=== PATIENT | male | born 1935 | race Caucasian/White ===

== ENCOUNTER 2019-12-17 08:36 | Outpatient (CLI) | payer MEDICARE, OTHER, SELFPAY ==
--- NOTE | 2019-12-17 08:46 | XR_ITS ---
WS: [id number] THORACIC SPINE TECHNIQUE: 3 views of the thoracic spine CLINICAL INFORMATION: IDIOPATHIC SCOLIOSIS COMPARISON: None. FINDINGS: Osteopenia. Mild thoracic curve convex right. Calcification. Calcified hilar nodes. Mild thoracic kyp hosis with chronic anterior wedging in the mid thoracic spine. No acute appearing compression fractur es. Mild disc space narrowing throughout the thoracic spine. Aortic calcification. XR/XR thoracic spine 3V* [id number] IMPRESSION: 1. Mild thoracic curve convex right with mild thoracic kyphosis. 2. Chronic anterior wedging mid thoracic spine. 3. No acute appearing compression fractures.
--- NOTE | 2019-12-17 08:46 | XR_ITS ---
WS: [id number] LUMBAR SPINE TECHNIQUE: 3 views of the lumbar spine CLINICAL INFORMATION: IDIOPATHIC SCOLIOSIS COMPARISON: None. FINDINGS: Mild lumbar curve convex left. Osteopenia. Moderate spondylitic changes lumbar spine. Pelvic phleboli ths. Slight retrolisthesis L1 on L2 and L2 on L3. Disc space narrowing throughout the lumbar spine wo rse at L1-2 with endplate degenerative changes. Moderate facet arthropathy lower lumbar spine. Aortic calcification. XR/XR lumbar spine 2-3V* [id number] IMPRESSION: 1. Mild lumbar curve convex left. Osteopenia. 2. No acute appearing compression fractures. 3. Slight retrolisthesis L1 on L2 and L2-L3 with disc space narrowing througho ut the lumbar spine. 4. Disc space narrowing worse at L1-2.
== END 2019-12-17 08:37 | disposition home or self-care (01) ==
LOC: RADWPI 08:41
PROVIDERS: PCP Family Medicine Adult Medicine; Visit Provider Family Medicine Adult Medicine
DX: M40.204 Unspecified kyphosis, thoracic region (principal); M48.54XA Collapsed vertebra, not elsewhere classified, thoracic region, initial encounter for fracture; X58.XXXA Exposure to other specified factors, initial encounter; M85.88 Other specified disorders of bone density and structure, other site
CPT/HCPCS: 72072; 72100

== ENCOUNTER → 2019-12-22 08:50 | Outpatient (BNVA) | payer MEDICARE, OTHER, SELFPAY | PROVIDERS: Visit Provider Family Medicine Adult Medicine | DX: M15.9 Polyosteoarthritis, unspecified (principal); N40.0 Benign prostatic hyperplasia without lower urinary tract symptoms; M41.20 Other idiopathic scoliosis, site unspecified; R00.0 Tachycardia, unspecified; R03.0 Elevated blood-pressure reading, without diagnosis of hypertension; Z91.81 History of falling; Z68.25 Body mass index [BMI] 25.0-25.9, adult; F17.211 Nicotine dependence, cigarettes, in remission | CPT/HCPCS: 84153; 85025 ==

== ENCOUNTER → 2020-03-15 11:03 | Outpatient (BNVA) | payer MEDICARE, OTHER, SELFPAY | PROVIDERS: PCP Family Medicine Adult Medicine; Visit Provider Orthopaedic Surgery | DX: M54.9 Dorsalgia, unspecified (principal) | CPT/HCPCS: 72114 ==

== ENCOUNTER 2020-03-23 13:34 | Outpatient (CLI) | payer MEDICARE, OTHER, SELFPAY ==
--- NOTE | 2020-03-23 13:45 | MR_ITS ---
WS: [id number] MRI LUMBAR SPINE NONCONTRAST HISTORY: M48.062 - Spinal stenosis, lumbar region with neurogenic claudication COMPARISON: Lumbar spine radiograph 03/15/2020 TECHNIQUE: Sagittal and axial multisequence imaging is submitted. Thoracolumbar scoliosis with degenerative changes in the cervical and thoracic spine. 3 mm retrolisthesis of L1 and L2. L4 anterior wedging by 20% with residual increased T2 signal from m arrow edema through the vertebral body. No involvement of the posterior elements. No retropulsion of the posterior vertebral body. There is moderate to severe disc space narrowing throughout the entire lumbar spine. Conus terminates normally at L1-2 disc level. L1-L2: Diffuse osteophytic ridging and annular disc bulging. Mild bilateral foraminal stenosis. L2-L3: Diffuse osteophytic ridging and annular disc bulging with facet and ligamentum flavum arthriti s. Mild encroachment into the thecal sac. Mild bilateral foraminal stenosis. L3-L4: Diffuse annular disc bulging. Disc is asymmetric extending into the RIGHT foramen. Moderate li gamentum flavum hypertrophy. Moderate RIGHT foramen and subarticular recess stenosis. Mild on the LEF T. The disc protrusion in the RIGHT foramen does abut the undersurface of the L3 nerve root. L4-L5: Diffuse annular disc bulging and osteophytic ridging. Mild facet and ligamentum flavum arthrit is. No central stenosis. Mild bilateral foraminal stenosis. L5-S1: Bilateral facet joint arthritis. Mild bilateral foraminal narrowing with no central stenosis. Bilateral renal cysts. Largest renal cyst on the LEFT at 7.3 cm. Atherosclerosis of aorta. MR/MR lumbar spine wo con* [id number] IMPRESSION: 1. Subacute L4 compression fracture by 20%. No retropulsion or involvement of the posterior elements. 2. Moderate RIGHT foraminal and subarticular recess stenosis at L3-4 secondary to asymmetric disc bulging, likely disc protrusion and facet disease. 3. 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 Most sign ificant narrowing is on the RIGHT at L3-4.
== END 2020-03-23 13:35 | disposition home or self-care (01) ==
LOC: RADSHAW 13:38
PROVIDERS: PCP Family Medicine Adult Medicine; Visit Provider Orthopaedic Surgery
DX: M48.062 Spinal stenosis, lumbar region with neurogenic claudication (principal); S32.040A Wedge compression fracture of fourth lumbar vertebra, initial encounter for closed fracture; M51.36 Other intervertebral disc degeneration, lumbar region; X58.XXXA Exposure to other specified factors, initial encounter
CPT/HCPCS: 72148

== ENCOUNTER → 2020-04-04 09:28 | Outpatient (BNVA) | payer MEDICARE, OTHER, SELFPAY | PROVIDERS: PCP Family Medicine Adult Medicine; Referring Provider Orthopaedic Surgery; Visit Provider Anesthesiology Pain Medicine | DX: M51.16 Intervertebral disc disorders with radiculopathy, lumbar region (principal); M47.816 Spondylosis without myelopathy or radiculopathy, lumbar region; Z79.891 Long term (current) use of opiate analgesic | CPT/HCPCS: 99205 ==

== ENCOUNTER → 2020-04-11 13:20 | Outpatient (BNVA) | payer MEDICARE, OTHER, SELFPAY | PROVIDERS: PCP Family Medicine Adult Medicine; Visit Provider Anesthesiology Pain Medicine | DX: M54.16 Radiculopathy, lumbar region (principal); M48.062 Spinal stenosis, lumbar region with neurogenic claudication | CPT/HCPCS: 64483; 64484; J1100; J3490 ==

== ENCOUNTER → 2020-05-10 10:10 | Outpatient (BNVA) | payer MEDICARE, OTHER, SELFPAY | PROVIDERS: PCP Family Medicine Adult Medicine; Visit Provider Anesthesiology Pain Medicine | DX: M51.16 Intervertebral disc disorders with radiculopathy, lumbar region (principal); M48.062 Spinal stenosis, lumbar region with neurogenic claudication; M47.816 Spondylosis without myelopathy or radiculopathy, lumbar region | CPT/HCPCS: 72100; 99214 ==

== ENCOUNTER → 2020-05-17 13:03 | Outpatient (BNVA) | payer MEDICARE, OTHER, SELFPAY | PROVIDERS: PCP Family Medicine Adult Medicine; Visit Provider Anesthesiology Pain Medicine | DX: M47.816 Spondylosis without myelopathy or radiculopathy, lumbar region (principal); M48.062 Spinal stenosis, lumbar region with neurogenic claudication | CPT/HCPCS: 64493; 64494; 64495; J1040; J3490 ==

== ENCOUNTER → 2020-06-01 10:22 | Outpatient (BNVA) | payer MEDICARE, OTHER, SELFPAY | PROVIDERS: PCP Family Medicine Adult Medicine; Visit Provider Anesthesiology Pain Medicine | DX: M48.062 Spinal stenosis, lumbar region with neurogenic claudication (principal); M51.16 Intervertebral disc disorders with radiculopathy, lumbar region; M47.816 Spondylosis without myelopathy or radiculopathy, lumbar region | CPT/HCPCS: 99214 ==

== ENCOUNTER 2020-06-06 12:56 | Outpatient (RCR) | payer MEDICARE, OTHER, SELFPAY | END 2020-06-15 23:59 | disposition home or self-care (01) | LOC: SPT 12:56 | PROVIDERS: PCP Family Medicine Adult Medicine; Referring Provider Orthopaedic Surgery; Visit Provider Orthopaedic Surgery | DX: M48.062 Spinal stenosis, lumbar region with neurogenic claudication (principal) | CPT/HCPCS: 97110; 97161 ==